=== PATIENT | male | born 1980 | race American Indian/Alaskan Native ===

== ENCOUNTER 2020-01-03 20:24 | Emergency (ER) | payer MEDICAID ==
[2020-01-03 20:34] VITALS: BP 131/84
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
[2020-01-03] MEDS ORDERED: HYDROcodone/ACETAMINOPHEN 10-325MG TAB PO ONE (23:49)
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
== END 2020-01-04 00:39 | disposition home or self-care (01) ==
LOC: ED 20:24
DX: S66.911A Strain of unspecified muscle, fascia and tendon at wrist and hand level, right hand, initial encounter (principal); Z79.899 Other long term (current) drug therapy; Z88.0 Allergy status to penicillin; Y08.89XA Assault by other specified means, initial encounter; Y93.89 Activity, other specified; Y92.89 Other specified places as the place of occurrence of the external cause; Y99.8 Other external cause status
CPT/HCPCS: 99283

== ENCOUNTER 2020-08-31 22:58 | Emergency (ER) | payer MEDICAID ==
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
[2020-08-31 23:32] LABS: Basophils % (Auto) 0.6 % (0.0-1.8); Eosinophils # (Auto) 0.2 K/mm3 (0.0-0.4); Eosinophils % (Auto) 3.2 % (0.0-4.3); Hematocrit 38.3 % (35.5-45.6); Hemoglobin 12.8 gm/dl (11.8-15.2); Lymphocytes # (Auto) 1.9 K/mm3 (1.2-5.4); Lymphocytes % (Auto) 28.2 % (13.4-35.0); Mean Corpuscular HGB Conc 33 % (32-34); Mean Corpuscular Volume 87 fl (84-94); Monocytes # (Auto) 0.7 K/mm3 (0.0-0.8); Monocytes % (Auto) 10.6 % (0.0-7.3); Platelet Count 227 K/mm3 (140-440); Red Blood Count 4.43 M/mm3 (3.65-5.03); Red Cell Distribution Width 16.7 % (13.2-15.2)
[2020-08-31 23:42] LABS: INR 0.88 (0.87-1.13); Partial Thromboplastin Time 20.2 Sec. (24.2-36.6)
--- NOTE | 2020-08-31 23:48 | XRay Report ---
CHEST 1 VIEW INDICATION: Dyspnea. COMPARISON: None FINDINGS: SUPPORT DEVICES: None. HEART: Within normal limits. LUNGS/PLEURA: No acute air space or interstitial disease. ADDITIONAL FINDINGS: None. IMPRESSION: 1. No acute findings. Signer Name: Pato Weaver MD Signed: 08/31/2020 11:43 PM Workstation Name: [id number]
[2020-08-31 23:54] LABS: Creatine Kinase MB 1.7 ng/mL (0.0-4.0)
[2020-08-31 23:57] LABS: Alanine Aminotransferase 16 units/L (7-56); Albumin 3.9 g/dL (3.9-5); BUN/Creatinine Ratio 12; Blood Urea Nitrogen 13 mg/dL (9-20); Calcium 8.5 mg/dL (8.4-10.2); Hemolysis Index 18
--- NOTE | 2020-09-01 01:04 | Cat Scan Report ---
CT head without contrast INDICATION : ams. TECHNIQUE: Axial imaging performed from the skull apex through the skull base without the use of con trast. All CT scans at this location are performed using CT dose reduction for ALARA by means of aut omated exposure control. COMPARISON: None FINDINGS: Parenchyma: No acute intracranial hemorrhage or parenchymal abnormality. Ventricles: Ventricles are normal in size and appear symmetric. Soft tissues: Soft tissues including the orbits appear normal. Bones: No acute osseous abnormality. Old orbital floor fixation. Sinuses: Findings of chronic sinusitis in the right maxillary sinus and several right-sided ethmoid air cells. Mild mucosal thickening also noted in the right frontal sinus. Remaining sinuses and masto id air cells are clear. IMPRESSION: No acute abnormality. Paranasal sinus findings as above. Signer Name: Pato Weaver MD Signed: 09/01/2020 1:00 AM Workstation Name: [id number]
[2020-09-01 12:34] VITALS: BP 126/82
--- NOTE | 2020-09-03 13:35 | Electrocardiograph Report ---
[facility] Test Date: 2020-08-31 Test Time: 23:10:16 Pat Name: RANDI ZAMUDIO Department: Room: Gender: M Stockbroker: JIMI : 1980 Requested By: NORMA REED III Order Number: [id number] Reading MD: aMnjinder Hernandez Measurements Intervals [place] Rate: 88 P: 64 IA: 137 QRS: 67 QRSD: 80 T: -69 QT: 360 QTc: 435 Interpretive Statements Sinus rhythm Nonspecific T abnormalities, diffuse leads No previous ECG available for comparison Electronically Signed On 09-03-2020 13:34:30 EDT by Manjinder Hernandez
== END 2020-09-01 14:27 | disposition home or self-care (01) ==
LOC: ED 22:58
DX: R06.02 Shortness of breath (principal); R41.82 Altered mental status, unspecified; Z98.890 Other specified postprocedural states; Z79.899 Other long term (current) drug therapy; Z88.0 Allergy status to penicillin
CPT/HCPCS: 36415; 70450; 71045; 80053; 82140; 82550; 82553; 84484; 85025; 85610; 85730; 93005